=== PATIENT | male | born 1960 | race Caucasian/White ===

== ENCOUNTER 2016-08-12 17:09 | Inpatient (IN) | payer MEDICARE ==
--- NOTE | ~2016-08-12 | CN ---
Consultation Report [facility] [address] [place]. [address] NAME: DRAGAN LEE : 64 STATUS : ADM IN PAT#: [id number] AGE: 56 ADM/REG DATE : 08/12/16 MR#: [id number] REPORT SERV DATE: 08/14/16 DICTATED BY: DAVID NORRIS DATE: 08/13/16 REPORT STATUS : Draft TRANSCRIBED BY: MODCb DATE: 08/13/16 CARDIOLOGY CONSULT DATE OF CONSULTATION: 08/13/2016 REASON FOR REFERRAL: Heart failure exacerbation. HISTORY OF PRESENT ILLNESS: This is a pleasant, 56-year-old gentleman with complex past medical history there that I have seen recently for the first time at [facility]. He has been until now followed by Dr. Naye Ozuna in different group. He has advance congestive heart failure with likely ischemic cardiomyopathy and EF 30%, found by echo in 04/2017. He is status post a CABG 2002 at [facility] and followup PA. He since then had multiple PCIs to different vessels by Dr. Ozuna, most recent one in 04/2016. He also has a cirrhosis with frequent paracenteses, portal hypertension, sleep apnea, and chronic kidney disease. He is a heavy smoker with COPD. He has several hospitalizations at [facility] in April and also in May. I have last time seen him at the [facility] on 08/01/2016. At that time, we discussed a plan to upgrade his pacemaker to AICD but before it could happen, the patient was admitted to Hospitalist Service for failure to thrive, increased abdominal girth, increased lower extremity edema, and worsening dyspnea with minimal activity. There have been some signs of PND also over the last couple days. The patient denies any chest pain or palpitations. He was admitted over the weekend. Reported last night he fell from hospital bed on his face. CT of the brain was negative for bleeding per the nurse. Of note, the patient has also chronic thrombocytopenia. He was found to have a BNP up to 1000 with some pleural thickening on the chest x-ray. Chronic renal insufficiency with creatinine 2.1 and then mild troponin leak at 0.05 and 0.1, but no ST- segment changes. He is on an intravenous Bumex drip and has been already seen by quality assurance representative. He is currently comfortable sitting on the bed without any dyspnea. REVIEW OF SYSTEMS: The rest of review of systems is negative. PAST MEDICAL HISTORY: 1. Coronary artery disease. He has a history of PA in 2002 with CABG at [facility] in 2002 with subsequent multiple PCIs to different vessels, most recent one in 04/[address] Naye ozuna. 2. Ischemic cardiomyopathy with EF 30% by echo in 06/2016 with some moderate tricuspid valve regurgitation. 3. Chronic congestive heart failure with recurrent exacerbation. The prior one was in 05/2016 at [facility]. 4. Status post permanent pacemaker placement in the past, awaiting AICD upgrade. 5. Cirrhosis with frequent paracenteses. 6. Portal hypertension. 7. Obstructive sleep apnea. 8. Chronic thrombocytopenia. 9. Chronic kidney disease with left atrophic kidney, followed up by Dr. Pringle with Consultation Report [address] [address] NAME: DRAGAN LEE : 64 STATUS : ADM IN [facility]#: [id number] AGE: 56 ADM/REG DATE : 08/12/16 MR#: [id number] REPORT SERV DATE: 08/14/16 DICTATED BY: DAVID NORRIS DATE: 08/13/16 REPORT STATUS : Draft TRANSCRIBED BY: KITA DATE: 08/13/16 transient hemodialysis, last one in May. 10.COPD with smoking dependency. 11.Spondylosis, on chronic narcotics. ALLERGIES: NO KNOWN DRUG ALLERGIES. HOME MEDICATIONS: Advair Diskus, alprazolam 1 mg three times a day, atorvastatin 20 mg once a day, Coreg 25 mg twice a day, citalopram 20 mg once a day, Combivent as needed, digoxin 0.125 mg once a day, Effient 10 mg once a day, Lasix 80 mg once a day. He was just started on a Bumex drip intravenously in hospital. Gabapentin 300 mg twice a day, hydrocodone 10/325 mg four times a day, iron supplement, isosorbide dinitrate 30 mg twice a day, Synthroid 137 mcg once a day, oxycodone every three hours as needed for pain, pantoprazole 40 mg once a day, and tamsulosin 0.4 mg once a day. SOCIAL HISTORY: The patient is . He previously worked in the [employer]. He has been disabled since the bypass surgery. He walks without any support. He has been smoking last 30 years, currently one pack a day. He denies drinking alcohol or using street drugs. FAMILY HISTORY: Negative for sudden cardiac , premature coronary artery disease in the family. PHYSICAL EXAMINATION: GENERAL: Chronically ill-looking gentleman who looks older than his biological age. VITAL SIGNS: Blood pressure 142/85, heart rate 72 and regular. HEENT: Pupils reactive to light and accommodation. Moist mucosa membrane. NECK: No JVD. Normal carotid upstroke. No carotid bruits. LUNGS: Decreased breath sounds bibasilar, but no crackles. COR: Normal S1, S2. No S3 or S4. No significant rub or murmurs. ABDOMEN: Distended with possible ascites. Mildly tender in the right upper quadrant. EXTREMITIES: Lower extremity 1+ edema up to the half of the hopson with decreased pedal pulses bilaterally. There are some bruises and scratches on his face over his right eye, noted since last night's fall. SKIN: Warm with normal turgor. MS: No kyphosis. NEURO/PSY: Alert and oriented. Nonfocal. DATA: Platelet count 80,000, creatinine 2.1, BUN 39, troponin 0.05 to 0.1, TSH is elevated at 4.5, BNP 1000. Chest x-ray as above. Electrocardiogram, normal sinus rhythm. First- degree AV block, 71 beats per minute with nonspecific ST-segment changes. ASSESSMENT AND PLAN: 1. Fluid overload with heart failure exacerbation. 2. Chronic kidney disease. 3. Liver cirrhosis with ascites. Consultation Report [address] [address] NAME: DRAGAN LEE : 64 STATUS : ADM IN PAT#: [id number] AGE: 56 ADM/REG DATE : 08/12/16 MR#: [id number] REPORT SERV DATE: 08/14/16 DICTATED BY: DAVID NORRIS DATE: 08/13/16 REPORT STATUS : Draft TRANSCRIBED BY: KITA DATE: 08/13/16 4. Chronic obstructive pulmonary disease with possible exacerbation. 5. Coronary artery disease with remote history of CABG, now troponin leak, is likely demand ischemia. The patient denies any chest pain. There are no obvious signs of myocardial infarction. I will treat him medically. He will need to be on strict fluid restriction. I agree on intravenous Bumex drip. His pacemaker has been checked yesterday, it is functioning well. After the exacerbation, he may require upgrade to the AICD as planned previously. At the present time, there is no indication for coronary arteriogram. His platelet count will need to be followed very closely. He is not a candidate for intravenous heparin. He may be required to see Dr. Nadir Sen who has been following him for cirrhosis while in the hospital also. We will follow the patient with you. GRICELDA/RAMÍREZL David Norris M.D. / [id number] CC: Rojas Dave M.D.
--- NOTE | ~2016-08-12 | HP ---
History And Physical [place] [place]. [address] NAME: DRAGAN LEE : 64 STATUS : ADM IN [facility]#: [id number] AGE: 56 ADM/REG DATE : 08/12/16 MR#: [id number] REPORT SERV DATE: 08/12/16 DICTATED BY: CARRI JOSE DATE: 08/12/16 REPORT STATUS : Draft TRANSCRIBED BY: MODCb DATE: 08/12/16 DATE OF ADMISSION: 08/12/2016 CHIEF COMPLAINT: A 56-year-old male presenting with volume overload, severe orthopnea. HISTORY OF PRESENT ILLNESS: The patient's history was obtained through careful interview with patient and , coupled with review of [facility] medical records. The patient states he has had a very complicated recent medical course between April 2016 and June 2016, he had developed worsening kidney failure and volume overload thought to be secondary to heart failure and cirrhosis. He was hospitalized on and off at [facility] and was on about three month course of dialysis. In June 2016, he was able to come off dialysis and has been managed by cardiology Dr. Gann and laborer high density press Dr. Pringle as well as continued visits with his primary care physician, Dr. Live Beverly. But over the last 10 days, the patient unfortunately has noticed signs of volume overload. The most significant complaint has been orthopnea. He cannot lie down at all without feeling as if he is smothering, and he has either been sitting up on the side of his bed all night or trying to rest in a recliner but still with paroxysmal nocturnal dyspnea. He also describes extreme dyspnea on exertion to the point where even walking across to his home leaves him gasping for breath. He describes dizziness and lightheadedness with exertion and feels uncordinated because of this. He has noticed no abdominal swelling, but he has noticed lower extremity edema that is not painful though. He describes his abdomen as feeling "messed up" with cramping discomfort from time to time and occasional loose stools. He is unable to give a numerical severity of his discomfort. No chest pain. No headache. No back pain. No leg pain. No fevers or chills. No nausea or vomiting. About a week ago, he felt so fatigued that he wondered if this was an adverse reaction from his thyroid medication. Therefore, he decided to take himself off Synthroid for about the last seven days. REVIEW OF SYSTEMS: Otherwise, a 14-point review of systems was obtained and was negative. PAST MEDICAL HISTORY: 1. Systolic congestive heart failure. Ejection fraction 30% measured on 07/10/2016 with moderate tricuspid regurgitation. History And Physical [address] [place]. [address] NAME: DRAGAN LEE : 64 STATUS : ADM IN PAT#: [id number] AGE: 56 ADM/REG DATE : 08/12/16 MR#: [id number] REPORT SERV DATE: 08/12/16 DICTATED BY: CARRI JOSE DATE: 08/12/16 REPORT STATUS : Draft TRANSCRIBED BY: KITA DATE: 08/12/16 2. Chronic kidney disease, stage III to stage IV. The patient had been on dialysis between April 2016 and June 2016, but has been off dialysis. We have records of a baseline creatinine of about 1.65 earlier in 2016. 3. COPD. 4. Coronary artery disease, status post CABG in 2003 and then the patient believes he has had five or six stents since that time. 5. Pacemaker and being evaluated for an AICD. 6. Depression and anxiety. 7. Chronic thrombocytopenia. 8. Cirrhosis with ascites thought to be caused by ZEPEDA. The patient followed by Dr. Nadir Sen. 9. MRSA infection. 10.Benign prostatic hypertrophy. 11.Possible adrenal insufficiency ?. The patient has a prescription for Cortef. PAST SURGICAL HISTORY: 1. CABG in 2003. 2. Pacemaker. ALLERGIES: NO KNOWN DRUG ALLERGIES. SOCIAL HISTORY: The patient continues to smoke cigarettes, does not drink alcohol. He is . Lives in [place]. He has children, grandchildren, and even great grandchildren now. He previously did work in sales. He has been on disability since his CABG in 2003. FAMILY HISTORY: Diabetes and heart disease are prevalent. CURRENT MEDICATIONS: Include albuterol inhaler, Xanax 1 mg p.o. t.i.d. as needed, Lipitor 20 mg p.o. daily, Coreg 25 mg p.o. b.i.d., Keflex just started on August 11, Celexa 20 mg p.o. daily, Cymbalta 60 mg p.o. daily, iron supplement, Advair inhaled twice a day, Lasix 80 mg p.o. b.i.d., Neurontin 300 mg p.o. b.i.d., hydrocodone, Cortef 5 mg at noon 10 mg in the morning, levothyroxine 137 mcg p.o. daily but has been noncompliant for about a week, magnesium 400 mg p.o. daily, Nasonex, nitroglycerin, Roxicodone 15 mg 6 times a day as needed, Protonix 40 mg p.o. b.i.d., Effient 10 mg p.o. daily, and Flomax 0.4 mg p.o. daily. PHYSICAL EXAMINATION: VITAL SIGNS: Temperature 97.9, pulse 72, blood pressure 161/80, respiratory rate 20, O2 saturation 95% on room air. GENERAL: A pleasant, cooperative male. He appears chronically ill but while sitting up in the bed he does not appear in any acute distress. HEENT: Pupils are equal, round, and reactive to light. No conjunctival pallor. No scleral icterus. Nares are patent. Oropharynx is clear of obstruction. Moist mucous membranes. NECK: Trachea midline, no thyromegaly. LYMPH: No cervical lymphadenopathy. No supraclavicular lymphadenopathy. RESPIRATORY: The patient has wet rales on examination. He also has a "distant" breath sounds and a "tightness" to his lung exam that suggests underlying chronic COPD changes. He History And Physical [address] [address] NAME: DRAGAN LEE : 64 STATUS : ADM IN [facility]#: [id number] AGE: 56 ADM/REG DATE : 08/12/16 MR#: [id number] REPORT SERV DATE: 08/12/16 DICTATED BY: CARRI JOSE DATE: 08/12/16 REPORT STATUS : Draft TRANSCRIBED BY: MODL DATE: 08/12/16 has dullness to percussion bilaterally at the base of lungs to suggest pleural effusions. It appears that the left side is more pronounced than the right by percussion. No focal egophony. The patient has only a minimally labored respiratory effort while at rest in the bed. CARDIOVASCULAR: Regular rate and rhythm. I do not appreciate a murmur, rub, or gallop. He has jugular venous distention to about the mid neck area, and he has deeply pitting lower extremity edema that extends about to his knee symmetrically. ABDOMEN: Soft, nontender by my exam, nondistended. Normal bowel sounds are auscultated throughout. No hepatosplenomegaly. DERMATOLOGIC: Warm and dry extremities. No pallor, no cyanosis. PSYCHIATRIC: Notably flat affect. He is in the discouraged mood but he denies depression. He is alert and oriented x3. LABORATORY DATA: White blood count 7.4, hemoglobin 15, hematocrit 44, platelets 80, sodium 139, potassium 4.7, chloride 101, bicarb 30, BUN 39, creatinine 2.12, glucose 97. TSH elevated at 4.410. Troponin 0.05. Brain natriuretic peptide 1092, INR 1.2. Influenza negative. STUDIES: 1. Chest x-ray, by my own evaluation shows pulmonary edema, cardiomegaly, left pleural effusion. 2. EKG by my own evaluation shows sinus rhythm, first-degree AV block, large inferior Q- waves, slight T-wave inversions in leads V5 through V6. ASSESSMENT AND PLAN: 1. Systolic congestive heart failure exacerbation with ejection fraction 30%, 07/10/2016. I reviewed his echo. The patient also has moderate tricuspid regurgitation. Placed on IV Bumex drip. Continue Coreg, hold JULIAN inhibitor and ARB for now secondary to chronic kidney disease. 2. Chronic kidney disease, stage III to stage IV. We will consult patient's laborer high density press Dr. Pringle. He had a history of temporary dialysis between April 2016 and June 2016. 3. Cirrhosis thought to be secondary to nonalcoholic steatohepatitis, seen outpatient by Dr. Nadir Sen, night stocker. 4. Under treated hypothyroidism. The patient discontinued medicine, and I will resume. 5. Chronic obstructive pulmonary disease. Placed on Duo-nebulizers. Counseled tobacco abstinence. 6. Coronary artery disease, status post CABG 2003 and about six stents since then. No current chest pain. Continue Effient. 7. Chronic thrombocytopenia. 8. Pacemaker. We will interrogate. Consult Dr. Gann, hairspring setter as it appears the patient may have indications for an AICD placement. 9. Possible adrenal insufficiency ? but I would like to hold Cortef for now as patient is quite volume overloaded and hypertensive. History And Physical [place] [address] [place]. [address] NAME: DRAGAN LEE : 64 STATUS : ADM IN PAT#: [id number] AGE: 56 ADM/REG DATE : 08/12/16 MR#: [id number] REPORT SERV DATE: 08/12/16 DICTATED BY: CARRI JOSE DATE: 08/12/16 REPORT STATUS : Draft TRANSCRIBED BY: KITA DATE: 08/12/16 KPL/KITA Carri Jose M.D. / [id number] CC: Rojas Dave M.D. Ondrej J Lisy, M.D. Donald Franklin Jr, M.D.
--- NOTE | ~2016-08-12 | DS ---
Discharge Summary [id number] [place]. [address] NAME: MONTANA LEE : 64 STATUS : DIS IN PAT#: [id number] AGE: 56 ADM/REG DATE : 08/12/16 MR#: [id number] REPORT SERV DATE: 08/17/16 DICTATED BY: DATE: REPORT STATUS : Draft TRANSCRIBED BY: MODL DATE: 08/16/16 ADMISSION DATE: 08/12/2016 DISCHARGE DATE: 08/16/2016 DISCHARGE DIAGNOSES: 1. Ischemic cardiomyopathy with an ejection fraction of 30%. 2. Chronic kidney disease stage 3. 3. Systolic heart failure with volume overload due to. 4. ischemic cardiomyopathy with an ejection fraction of 30%. 5. Anxiety and depression. 6. Tobacco abuse. 7. Chronic obstructive pulmonary disease. 8. Chronic liver disease with cirrhosis. CONSULTING PHYSICIAN: Include Dr. Foster Gann, with [facility]. DISCHARGE MEDICATIONS: Include Lipitor 20 mg p.o. daily, Bumex 2 mg p.o. b.i.d., Coreg 25 mg p.o. b.i.d., Celexa 20 mg p.o. daily, Cymbalta 60 mg p.o. daily, Neurontin 300 mg p.o. b.i.d., Cortef 5 mg p.o. at noon, Cortef 10 mg p.o. daily, levothyroxine 137 mcg p.o. daily, magnesium 400 mg p.o. daily, Protonix 40 mg p.o. b.i.d., Effient 10 mg p.o. daily, Flomax 0.4 mg p.o. daily, Advair Diskus 500/50 one puff inhalation b.i.d., potassium chloride 20 mEq p.o. b.i.d., Combivent one inhalation p.o. b.i.d., ferrous sulfate 325 mg p.o. b.i.d., Roxicodone 10 mg p.o. q.4 hours p.r.n. for pain, Xanax 1 mg p.o. t.i.d. p.r.n. for anxiety, DuoNeb one nebulizer inhalation 4 times daily p.r.n. for shortness of breath, ProAir HFA 2 puffs inhalation p.r.n. for shortness of breath, Nitrostat 0.4 mg sublingual p.r.n. for chest pain. For full H and P, please refer to Dr. Jordon Richards's dictation on 08/12/2016. Please also see consultation dictation of Fran Sen M.D. as well as Dr. Foster Gann. IMAGING: Imaging includes multiple portable chest x-rays, last showing left lung base atelectasis and effusion which were improving compared to the previous study. This was performed on 08/13/2016 and compared to 08/12/2016. CT of brain without contrast was performed, and no acute intracranial pathology was noted. Evidence for old injury to the right frontal region, maxillary sinusitis, and mild atrophy were noted. There was a small right cephalohematoma identified. Renal ultrasound was performed which demonstrated similar appearance of the kidneys with renal cortical thinning and a benign left renal cyst, obscuration of the aorta by gas was noted. HOSPITAL COURSE/PROBLEM LIST: 1. Ischemic cardiomyopathy with an ejection fraction of 30%. Systolic heart failure with volume overload. The patient was admitted with paroxysmal nocturnal dyspnea that was going on for some time and worsening at home. The patient was placed on a Bumex drip after admission which I discontinued yesterday on 08/15/2016, placed the patient on Bumex p.o. He has diuresed well during his hospital stay. He no longer has paroxysmal nocturnal dyspnea. However, he is still requiring oxygen. This is likely due to Discharge Summary [address] [address] NAME: MONTANA LEE : 64 STATUS : DIS IN PAT#: [id number] AGE: 56 ADM/REG DATE : 08/12/16 MR#: [id number] REPORT SERV DATE: 08/17/16 DICTATED BY: DATE: REPORT STATUS : Draft TRANSCRIBED BY: MODL DATE: 08/16/16 progressive pulmonary disease. The patient does have COPD, and we will evaluate him for home oxygen therapy prior to discharge. He is in no acute distress at this time. His O2 saturation is 96% on 2 L and rest. I will continue the patient on Bumex p.o. after discharge 2 mg b.i.d. He was on Lasix 80 mg b.i.d. at home. However, the Bumex seemed to work well for diuresis here in the hospital and considering he came in overt failure, I think it is prudent to switch him to Bumex. [facility], Dr. Gann was following this patient during his hospital stay. He did sign off yesterday, and the patient will follow up with him in five weeks post discharge. The patient does have a permanent pacemaker. He was evaluated for possible upgrade to an AICD during his hospital stay. However, it was decided between Dr. Gann and Dr. Thompson that the patient could have this done as an outpatient and did not need to stay in the hospital for this procedure. 2. Chronic kidney disease. The patient's creatinine is stable and today is 1.92. He will need followup with his primary care provider for close monitoring of this as well as his information technology account manager Dr. Pringle. 3. Anxiety and depression. I will continue the patient's Xanax that he was taking at home as well as his Cymbalta and Celexa. 4. Tobacco abuse. Smoking cessation was discussed with the patient, the importance of quitting especially, if the patient needs home oxygen therapy. It was also discussed that this would reduce the progression of his disease of COPD. 5. Cirrhosis of the liver. The patient sees Dr. Nadir Sen for his cirrhosis which is stable at this time. He can follow up with him as needed. The patient is currently hemodynamically stable. Last blood pressure 146/79, heart rate 69, O2 saturation 96% on 2 L nasal cannula. Temperature was 98.1. CLR/MODL Montana Rose NP / [id number] CC: MD Angie Rich M.D.
--- NOTE | ~2016-08-12 | CN ---
Consultation Report [facility] [address] [place]. [address] NAME: DRAGAN LEE : 64 STATUS : ADM IN PAT#: [id number] AGE: 56 ADM/REG DATE : 08/12/16 MR#: [id number] REPORT SERV DATE: 08/13/16 DICTATED BY: AAMIR SEN DATE: 08/12/16 REPORT STATUS : Draft TRANSCRIBED BY: MODL DATE: 08/12/16 RENAL CONSULT DATE OF CONSULTATION: 08/12/2016 REASON FOR CONSULTATION: Regarding acute kidney injury. BRIEF HISTORY OF PRESENT ILLNESS: A 56-year-old white male with a history of chronic kidney disease followed by Dr. Pringle with hemodialysis dependent acute kidney injury on 04/20/2016 after a dialysis, 06/02/2016. Unknown baseline creatinine. Currently, the patient suggests that GFR is 20 mL/minute. Pre-hemodialysis baseline creatinine was 1.5 with questionable adrenal insufficiencies; coronary artery disease, status post PCI multiple times, EF of 30% with pacemaker placement; history of CABG in 2003; cirrhosis, followed by Dr. Nadir Sen with COPD with ongoing tobacco use, admitted with acute on chronic systolic CHF with weight gain of approximately 5 pounds. BUN and creatinine noted be 39 and 2.1 which is suspected to be below baseline in the setting of volume overload. We are called for further evaluation and management of renal dysfunction. The patient denies any NSAID use. No other additional nephrotoxic injury. PAST MEDICAL HISTORY: 1. Chronic kidney disease. The patient of Dr. Pringle, unknown baseline creatinine. Pre- hemodialysis was 1.5. 2. Ischemic cardiomyopathy with a CABG in 2003, multiple PCI, EF of 30%. 3. Pacemaker placement. 4. Fatty liver disease resulting in cirrhosis, followed by Dr. Nadir Sen. 5. Ongoing tobacco use with COPD. 6. Chronic thrombocytopenia. 7. Hypothyroidism, untreated. MEDICATIONS ON ADMISSION: Include DuoNebs, ProAir, Xanax, Lipitor, Coreg 25 mg b.i.d., Keflex, Celexa, Cymbalta, iron sulfate, Advair, Lasix 80 mg b.i.d., Neurontin, Lyons, Cortef 50 mg daily, Combivent, levothyroxine. The patient was not taking magnesium oxide, Nasonex, Nitrostat, Roxicodone, Protonix, Effient, and Flomax. ALLERGIES: INCLUDE NO KNOWN DRUG ALLERGIES. SOCIAL HISTORY: Positive tobacco use one pack per day for 45 years. No alcohol or illicit drug use. FAMILY HISTORY: No history of renal disease. REVIEW OF SYSTEMS: Consultation Report [facility] [address] [place]. [address] NAME: DRAGAN LEE : 64 STATUS : ADM IN [facility]#: [id number] AGE: 56 ADM/REG DATE : 08/12/16 MR#: [id number] REPORT SERV DATE: 08/13/16 DICTATED BY: AAMIR SEN DATE: 08/12/16 REPORT STATUS : Draft TRANSCRIBED BY: KITA DATE: 08/12/16 Negative, except as mentioned in the HPI. PHYSICAL EXAMINATION: VITAL SIGNS: Temperature 97.9, blood pressure of 161/80, pulse of 72, respiratory rate is 20. GENERAL: Well-developed, acute on chronically ill-appearing white male, in no distress. HEENT: Normocephalic and atraumatic. Pupils are equal, round, and reactive to light. Mucous membranes are moist. NECK: Supple. No thyromegaly. CARDIOVASCULAR: Regular rate and rhythm. No murmurs appreciated. Normal S1, S2. RESPIRATORY: Clear to auscultation anteriorly with decreased breath sounds at bases. ABDOMEN: Normal respiratory effort. Abdomen is soft, obese, nontender, and nondistended. Positive bowel sounds. EXTREMITIES: No clubbing, cyanosis, with significant 2+ pitting edema of the lower extremities bilaterally. SKIN: No rashes or ulcerations appreciated. NEURO: Moves all extremities well. No focal deficits. Normal sensation in all extremities. PSYCH: Alert and oriented x3 with a flat affect. LABORATORY DATA: Sodium 139, potassium 4.7, chloride 101, bicarb 28, BUN 39, creatinine 2.1, glucose is 97, calcium 8.9, magnesium is 2.5. White count is 7.4, hemoglobin is 14.6, platelet count is 88,000. BNP is 1092. TSH is 4.4. Troponin 0.05. Chest x-ray, left effusion with prominent pulmonary vasculature. ASSESSMENT AND PLAN: 1. Chronic kidney disease. Creatinine is suspected to be below baseline. We will obtain office records. 2. Acute on chronic systolic congestive heart failure. Cardiology consulted. Questionable AICD. I agree with Bumex drip for 8 hours and then the patient to be placed on oral Bumex. The patient may need IV Bumex for a long period of time. We will re-evaluate in the a.m. No acute need for renal replacement therapy. I agree holding hydrocortisone, this may be disruptive due to his volume status. 3. Volume overload. 4. Coronary artery disease with coronary artery bypass graft in 2003, multiple percutaneous coronary intervention and pacemaker placement. 5. Cirrhosis and fatty liver. With a history of morbid obesity. 6. Hyperlipidemia. 7. Chronic obstructive pulmonary disease with obstructive sleep apnea and CPAP not working. The patient needs CPAP fixed. Continue supportive care. Avoid nephrotoxins. Partners to follow in the a.m. NCP/MODL Consultation Report [address] [address] NAME: DRAGAN LEE : 64 STATUS : ADM IN PAT#: [id number] AGE: 56 ADM/REG DATE : 08/12/16 MR#: [id number] REPORT SERV DATE: 08/13/16 DICTATED BY: AAMIR SEN. DATE: 08/12/16 REPORT STATUS : Draft TRANSCRIBED BY: KITA DATE: 08/12/16 Aamir Sen M.D. / [id number] CC: Rojas Dave Jr, M.D.
--- NOTE | ~2016-08-12 | DS ---
Discharge Summary [facility] [address] [facility] [address] NAME: [place] LEE : 64 STATUS : DIS IN PAT#: [id number] AGE: 56 ADM/REG DATE : 08/12/16 MR#: [id number] REPORT SERV DATE: 08/17/16 DICTATED BY: DATE: REPORT STATUS : Draft TRANSCRIBED BY: MODL DATE: 08/16/16 ADMISSION DATE: 08/12/2016 DISCHARGE DATE: 08/16/2016 ADDENDUM: The discharge took me greater than 30 minutes due to medication reconciliation, discussion of followups with the patient, writing prescriptions, and ensuring home health was set up through discussion with Case Management. IRVING/KITA Montana Rose NP / [id number] CC: MD BENITEZ Rich
[~2016-08-12 17:09] MED LIST: ADVAIR INH; ASAB PO; ATROVENTUD INH; CELEXA20 PO; COMBIVENT RESPIM4 GM INH; COREG6 PO; EFFIENT10 PO; HYDROCORT5 MG PO; L80 PO; LEVOTHYROXIN137 MCG PO; LIPITOR20 PO; NEUR300 PO; NORCO1 TAB PO; PROTONIX PO; ROXICODONE15 MG PO; XANAX1 MG PO
[2016-08-12 17:43] LABS: BASOPHILS 0.3 %; BASOPHILS ABSOLUTE 0.02 10/3/uL (0.0-0.16); EOSINOPHILS 0 %; ER CBC TAT 0 Hrs 07 Mins; HEMOGLOBIN 14.6 g/dL (13.6-17.8); IMMATURE GRANULOCYTES 0.1 %; IMMATURE GRANULOCYTES ABSOLUTE 0.01 10/3/uL (0.0-0.11); LYMPHOCYTES 14.7 %; LYMPHOCYTES ABSOLUTE 1.09 10/3/uL (0.67-4.30); MEAN CORPUS HGB CONC 33.2 g/dL (32.0-36.0); MEAN CORPUSCULAR HEMOGLOB 32.2 pg (26.0-34.0); MEAN CORPUSCULAR VOLUME 97.1 fL (80-100); MEAN PLATELET VOLUME 11.8 fL (9.2-13.0); MONOCYTES 11.5 %; MONOCYTES ABSOLUTE 0.85 10/3/uL (0.21-1.20); NEUTROPHILS 73.4 %; NEUTROPHILS ABSOLUTE 5.44 10/3/uL (2.02-8.40); RBC DISTRIBUTION WIDTH 14.9 % (12.0-16.0); RED CELL COUNT 4.53 10/6/uL (4.7-6.1); WHITE BLOOD CELLS 7.4 10/3/uL (4.5-10.5)
[2016-08-12 17:44] LABS: ALLENS TEST Pos; BE (BASE EXCESS) 3.1 MEQ/L (0 +/- 2.5); CARBOXYHEMOGLOBIN 3.1 % (0-3); DEVICE NC; HCO3 (ACTUAL BICARBONATE) 28.2 MEQ/L (23-27); HEMOBLOGIN CONTENT 14.5 G/DL (14-18); INSTRUMENT SERIAL # 8087; METHEMOGLOBIN 0.1 % (0-3); OPERATOR ID 31928; PCO2 (CO2 TENSION) 45 MMHG (35-45); PO2 (O2 TENSION) 80 MMHG (79-93); SAMPLE Arterial; pH 7.42 (7.37-7.43)
[2016-08-12 17:44] LABS: MANUAL DIFF NO %; PLATELET COUNT 80 10/3/uL (150-400)
[2016-08-12 17:51] LABS: INTERNATIONAL NORMAL RATI 1.2 UNITS (-); PARTIAL THROMBO TIME 33.4 SEC (22.5-37.2); PROTIME (NOT ORD) 14.6 SEC (12.0-14.5)
[2016-08-12 18:02] LABS: INFLUENZA A SCREEN NEGATIVE (NEGATIVE); INFLUENZA B SCREEN NEGATIVE (NEGATIVE)
[2016-08-12 18:05] LABS: BUN (BLOOD UREA NITROGEN) 39 MG/DL (6-23); CALCIUM, SERUM 8.9 MG/DL (8.5-10.4); CHLORIDE, SERUM 101 MMOL/L (96-112); CO2 (CARBON DIOXIDE) 30 MMOL/L (24-34); CREATININE 2.12 MG/DL (0.70-1.30); GFR AFRICAN AMERICAN 40 ML/MIN (>=60); GFR NON AFRICAN AMERICAN 34 ML/MIN (>=60); GLUCOSE, SERUM 97 MG/DL (60-99); POTASSIUM, SERUM 4.7 MMOL/L (3.5-5.3); SALICYLATE 4.3 MG/DL (-); SODIUM, SERUM 139 MMOL/L (135-148)
[2016-08-12 18:06] LABS: ACETAMINOPHEN LEVEL (TYLENOL) < 2.0 MCG/ML (10.0-20.0); ALCOHOL < 10 MG/DL (0); CHEST PAIN PROFILE TAT 0 Hrs 30 Mins; TROPONIN I 0.05 NG/ML (<0.05)
[2016-08-12] MEDS ORDERED: CORTEF5 PO ×2 (18:43)
[2016-08-12] MEDS ORDERED: CYMBALTA60 PO (18:43)
[2016-08-12] MEDS ORDERED: LIPITOR20 PO (18:44)
[2016-08-12] MEDS ORDERED: FERROUS SULF325 M1 PO (18:44)
[2016-08-12] MEDS ORDERED: COREG6 PO (18:44)
[2016-08-12] MEDS ORDERED: ROXICODONE15 MG PO (18:45)
[2016-08-12] MEDS ORDERED: NORCO1 TAB PO (18:45)
[2016-08-12] MEDS ORDERED: XANAX1 MG PO (18:45)
[2016-08-12] MEDS ORDERED: LEVOTHYROXIN137 MCG PO (18:46)
[2016-08-12] MEDS ORDERED: PROTONIX PO (18:46)
[2016-08-12] MEDS ORDERED: FLOMAX4 PO (18:46)
[2016-08-12] MEDS ORDERED: K500 PO (18:46)
[2016-08-12] MEDS ORDERED: DUONEB INH (18:47)
[2016-08-12] MEDS ORDERED: NEUR300 PO (18:47)
[2016-08-12] MEDS ORDERED: MAGOX4 PO (18:49)
[2016-08-12] MEDS ORDERED: L80 PO (18:49)
[2016-08-12] MEDS ORDERED: NASONEX NAS (18:50)
[2016-08-12] MEDS ORDERED: EFFIENT10 PO (18:50)
[2016-08-12] MEDS ORDERED: ADVAIR INH (18:50)
[2016-08-12] MEDS ORDERED: COMBIVENT RESPIM4 GM PO (18:50)
[2016-08-12] MEDS ORDERED: PROAIR HFA INH (18:51)
[2016-08-12] MEDS ORDERED: NITROSTAT0.4 MG SL (18:51)
[2016-08-12] MEDS ORDERED: CELEXA20 PO (18:57)
[2016-08-12 19:57] LABS: AMPHETAMINES (NOT ORD) NEG (NEG); BARBITURATES (NOT ORDERED NEG (NEG); BENZODIAZEPINES (NOT ORD) NEG (NEG); CANNABINOIDS (THC) NEG (NEG); COCAINE (NOT ORDERED) NEG (NEG); OPIATES NEG (NEG); PHENCYCLIDINE(PCP) NEG (NEG); TRICYCLICS NEG (NEG)
[2016-08-13 05:18] LABS: BASOPHILS 0.4 %; BASOPHILS ABSOLUTE 0.03 10/3/uL (0.0-0.16); EOSINOPHILS 8.1 %; EOSINOPHILS ABSOLUTE 0.55 10/3/uL (0.0-0.53); HEMATOCRIT 42.4 % (40.0-51.0); HEMOGLOBIN 14.1 g/dL (13.6-17.8); LYMPHOCYTES 22.8 %; LYMPHOCYTES ABSOLUTE 1.56 10/3/uL (0.67-4.30); MEAN CORPUS HGB CONC 33.3 g/dL (32.0-36.0); MEAN CORPUSCULAR HEMOGLOB 32.3 pg (26.0-34.0); MEAN PLATELET VOLUME 11.5 fL (9.2-13.0); MONOCYTES 10.2 %; NEUTROPHILS 58.5 %; NEUTROPHILS ABSOLUTE 3.99 10/3/uL (2.02-8.40); PLATELET COUNT 82 10/3/uL (150-400); RED CELL COUNT 4.37 10/6/uL (4.7-6.1); WHITE BLOOD CELLS 6.8 10/3/uL (4.5-10.5)
[2016-08-13 05:26] LABS: INTERNATIONAL NORMAL RATI 1.2 UNITS (-); PARTIAL THROMBO TIME 35.3 SEC (22.5-37.2); PROTIME (NOT ORD) 14.8 SEC (12.0-14.5)
[2016-08-13 05:46] LABS: A/G RATIO 0.9 (0.7-1.9); ALBUMIN 3.2 G/DL (3.5-5.0); BUN (BLOOD UREA NITROGEN) 36 MG/DL (6-23); CALCIUM, SERUM 9.1 MG/DL (8.5-10.4); CHLORIDE, SERUM 101 MMOL/L (96-112); CO2 (CARBON DIOXIDE) 30 MMOL/L (24-34); CPK 27 U/L (0-200); CREATININE 1.95 MG/DL (0.70-1.30); GFR AFRICAN AMERICAN 44 ML/MIN (>=60); GFR NON AFRICAN AMERICAN 38 ML/MIN (>=60); GLOBULIN 3.7 G/DL (2.5-4.1); GLUCOSE, SERUM 97 MG/DL (60-99); PHOSPHORUS, SERUM 3.6 MG/DL (2.5-4.5); SGOT(AST) 36 U/L (5-40); SGPT(ALT) 50 U/L (5-65); SODIUM, SERUM 139 MMOL/L (135-148); TOTAL BILIRUBIN 0.7 MG/DL (0-1.2); TOTAL PROTEIN 6.9 G/DL (6.0-8.5)
[2016-08-13 05:47] LABS: ALKALINE PHOSPHATASE 278 U/L (45-117); CK-MB 1.2 NG/ML; MANUAL DIFF NO %
[2016-08-13 13:53] LABS: ALLENS TEST Pos; BE (BASE EXCESS) 2.8 MEQ/L (0 +/- 2.5); CARBOXYHEMOGLOBIN 0.8 % (0-3); DEVICE NC; HCO3 (ACTUAL BICARBONATE) 28.5 MEQ/L (23-27); HEMOBLOGIN CONTENT 14.5 G/DL (14-18); INSTRUMENT SERIAL # 35151; METHEMOGLOBIN 0.5 % (0-3); O2 CONTENT 18.8 VOL% (18-24); PCO2 (CO2 TENSION) 48 MMHG (35-45); PO2 (O2 TENSION) 70 MMHG (79-93); SAMPLE Arterial; pH 7.39 (7.37-7.43)
[2016-08-14 04:47] LABS: BASOPHILS 0.4 %; BASOPHILS ABSOLUTE 0.03 10/3/uL (0.0-0.16); EOSINOPHILS 5.7 %; EOSINOPHILS ABSOLUTE 0.39 10/3/uL (0.0-0.53); HEMATOCRIT 40.4 % (40.0-51.0); HEMOGLOBIN 13.4 g/dL (13.6-17.8); IMMATURE GRANULOCYTES 0.1 %; IMMATURE GRANULOCYTES ABSOLUTE 0.01 10/3/uL (0.0-0.11); LYMPHOCYTES 21.6 %; LYMPHOCYTES ABSOLUTE 1.48 10/3/uL (0.67-4.30); MEAN CORPUS HGB CONC 33.2 g/dL (32.0-36.0); MEAN CORPUSCULAR HEMOGLOB 32.1 pg (26.0-34.0); MEAN CORPUSCULAR VOLUME 96.7 fL (80-100); MEAN PLATELET VOLUME 11.1 fL (9.2-13.0); MONOCYTES 9.9 %; MONOCYTES ABSOLUTE 0.68 10/3/uL (0.21-1.20); NEUTROPHILS 62.3 %; NEUTROPHILS ABSOLUTE 4.25 10/3/uL (2.02-8.40); PLATELET COUNT 75 10/3/uL (150-400); RBC DISTRIBUTION WIDTH 14.7 % (12.0-16.0); RED CELL COUNT 4.18 10/6/uL (4.7-6.1); WHITE BLOOD CELLS 6.8 10/3/uL (4.5-10.5)
[2016-08-14 04:48] LABS: MANUAL DIFF NO %
[2016-08-14 05:03] LABS: % IRON SAT 16 % (20-50); CALCIUM, SERUM 8.3 MG/DL (8.5-10.4); CHLORIDE, SERUM 97 MMOL/L (96-112); CO2 (CARBON DIOXIDE) 32 MMOL/L (24-34); CREATININE 2.04 MG/DL (0.70-1.30); FERRITIN 65 NG/ML (26-388); GFR AFRICAN AMERICAN 42 ML/MIN (>=60); GFR NON AFRICAN AMERICAN 36 ML/MIN (>=60); GLUCOSE, SERUM 102 MG/DL (60-99); IRON BINDING CAPACITY 242 MCG/DL (250-450); IRON, SERUM 39 MCG/DL (35-150); SGOT(AST) 22 U/L (5-40); SGPT(ALT) 35 U/L (5-65); SODIUM, SERUM 138 MMOL/L (135-148); TOTAL BILIRUBIN 0.8 MG/DL (0-1.2); TOTAL PROTEIN 5.7 G/DL (6.0-8.5)
[2016-08-14 05:06] LABS: A/G RATIO 1.1 (0.7-1.9); ALKALINE PHOSPHATASE 237 U/L (45-117); BUN (BLOOD UREA NITROGEN) 41 MG/DL (6-23); GLOBULIN 2.7 G/DL (2.5-4.1)
[2016-08-14 05:15] LABS: PLATELET ESTIMATE DEC (ADEQUATE); RBC MORPHOLOGY NORM (NORMAL)
[2016-08-15 06:38] LABS: BASOPHILS 0.5 %; BASOPHILS ABSOLUTE 0.04 10/3/uL (0.0-0.16); EOSINOPHILS 3.2 %; EOSINOPHILS ABSOLUTE 0.27 10/3/uL (0.0-0.53); HEMATOCRIT 39.9 % (40.0-51.0); HEMOGLOBIN 13.1 g/dL (13.6-17.8); IMMATURE GRANULOCYTES 0.2 %; IMMATURE GRANULOCYTES ABSOLUTE 0.02 10/3/uL (0.0-0.11); LYMPHOCYTES 17.4 %; LYMPHOCYTES ABSOLUTE 1.45 10/3/uL (0.67-4.30); MEAN CORPUS HGB CONC 32.8 g/dL (32.0-36.0); MEAN CORPUSCULAR HEMOGLOB 31.9 pg (26.0-34.0); MEAN CORPUSCULAR VOLUME 97.1 fL (80-100); MONOCYTES 11.4 %; MONOCYTES ABSOLUTE 0.95 10/3/uL (0.21-1.20); NEUTROPHILS 67.3 %; NEUTROPHILS ABSOLUTE 5.62 10/3/uL (2.02-8.40); PLATELET COUNT 82 10/3/uL (150-400); RBC DISTRIBUTION WIDTH 14.7 % (12.0-16.0); RED CELL COUNT 4.11 10/6/uL (4.7-6.1); WHITE BLOOD CELLS 8.4 10/3/uL (4.5-10.5)
[2016-08-15 06:40] LABS: MANUAL DIFF NO %
[2016-08-15 06:51] LABS: A/G RATIO 0.9 (0.7-1.9); ALBUMIN 3.1 G/DL (3.5-5.0); ALKALINE PHOSPHATASE 243 U/L (45-117); BUN (BLOOD UREA NITROGEN) 39 MG/DL (6-23); CALCIUM, SERUM 8.7 MG/DL (8.5-10.4); CHLORIDE, SERUM 97 MMOL/L (96-112); CO2 (CARBON DIOXIDE) 33 MMOL/L (24-34); CREATININE 1.99 MG/DL (0.70-1.30); GFR AFRICAN AMERICAN 43 ML/MIN (>=60); GFR NON AFRICAN AMERICAN 37 ML/MIN (>=60); GLOBULIN 3.6 G/DL (2.5-4.1); GLUCOSE, SERUM 96 MG/DL (60-99); PHOSPHORUS, SERUM 3.1 MG/DL (2.5-4.5); POTASSIUM, SERUM 4.3 MMOL/L (3.5-5.3); SGOT(AST) 28 U/L (5-40); SGPT(ALT) 34 U/L (5-65); SODIUM, SERUM 138 MMOL/L (135-148); TOTAL BILIRUBIN 0.5 MG/DL (0-1.2); TOTAL PROTEIN 6.7 G/DL (6.0-8.5)
[2016-08-16 06:00] LABS: CALCIUM, SERUM 8.8 MG/DL (8.5-10.4); CHLORIDE, SERUM 95 MMOL/L (96-112); CO2 (CARBON DIOXIDE) 33 MMOL/L (24-34); CREATININE 1.92 MG/DL (0.70-1.30); GFR AFRICAN AMERICAN 45 ML/MIN (>=60); GFR NON AFRICAN AMERICAN 39 ML/MIN (>=60); GLUCOSE, SERUM 99 MG/DL (60-99); PHOSPHORUS, SERUM 3.3 MG/DL (2.5-4.5); POTASSIUM, SERUM 4.3 MMOL/L (3.5-5.3); SODIUM, SERUM 134 MMOL/L (135-148)
[2016-08-16 06:03] LABS: BUN (BLOOD UREA NITROGEN) 43 MG/DL (6-23)
[2016-08-16] MEDS ORDERED: BUM2 PO (11:08)
[2016-08-16] MEDS ORDERED: KLOR-CON20 MEQ PO (11:20)
[2016-08-23] MEDS ORDERED: ATROVENTUD INH (09:31)
[2016-08-23] MEDS ORDERED: ASAB PO (10:12)
[2016-08-23] MEDS ORDERED: L80 PO (10:13)
[2016-08-23] MEDS ORDERED: COMBIVENT RESPIM4 GM INH (10:13)
[2016-08-23] MEDS ORDERED: NORCO1 TAB PO (10:13)
[2016-08-23] MEDS ORDERED: IMDUR30 PO (10:14)
[2016-08-24] MEDS ORDERED: COREG25 PO (09:46)
[2016-08-24] MEDS ORDERED: BUM2 PO (09:48)
[2016-08-24] MEDS ORDERED: CORTEF5 PO (09:49)
[2016-08-24] MEDS ORDERED: CORTEF20 MG PO (09:50)
[2016-08-24] MEDS ORDERED: NASONEX NAS (09:51)
[2016-08-24] MEDS ORDERED: MAGOX4 PO (09:52)
== END 2016-08-16 17:04 | disposition home or self-care (01) | DRG 291 ==
LOC: ER 17:09 → 7NO 19:00
PROVIDERS: Emergency Medicine; Hospitalist; Internal Medicine; Nurse Practitioner Acute Care
PROC: 4B02XSZ Measurement of Cardiac Pacemaker, External Approach (ICD-10-PCS; principal; 2016-08-13)
DX: I13.0 Hypertensive heart and chronic kidney disease with heart failure and stage 1 through stage 4 chronic kidney disease, or unspecified chronic kidney disease (principal); I50.23 Acute on chronic systolic (congestive) heart failure; K76.6 Portal hypertension; R18.8 Other ascites; I24.8 Other forms of acute ischemic heart disease; N18.3 Chronic kidney disease, stage 3 (moderate); D69.6 Thrombocytopenia, unspecified; I07.1 Rheumatic tricuspid insufficiency; K74.60 Unspecified cirrhosis of liver; J44.9 Chronic obstructive pulmonary disease, unspecified; I25.10 Atherosclerotic heart disease of native coronary artery without angina pectoris; K76.0 Fatty (change of) liver, not elsewhere classified; G47.33 Obstructive sleep apnea (adult) (pediatric); I25.5 Ischemic cardiomyopathy; G89.29 Other chronic pain; F41.9 Anxiety disorder, unspecified; F32.9 Major depressive disorder, single episode, unspecified; F17.210 Nicotine dependence, cigarettes, uncomplicated; K74.69 Other cirrhosis of liver; J32.0 Chronic maxillary sinusitis; E78.5 Hyperlipidemia, unspecified; D73.1 Hypersplenism; M47.9 Spondylosis, unspecified; I25.2 Old myocardial infarction; W06.XXXA Fall from bed, initial encounter; Y92.230 Patient room in hospital as the place of occurrence of the external cause; N26.1 Atrophy of kidney (terminal); N40.0 Benign prostatic hyperplasia without lower urinary tract symptoms; E03.9 Hypothyroidism, unspecified; Z95.5 Presence of coronary angioplasty implant and graft; Z95.0 Presence of cardiac pacemaker; Z86.14 Personal history of Methicillin resistant Staphylococcus aureus infection; Z83.3 Family history of diabetes mellitus; Z79.891 Long term (current) use of opiate analgesic
CPT/HCPCS: 36600; 70450; 71010; 71020; 76775; 80048; 80053; 80069; 80305; 80307; 82140; 82550; 82553; 82728; 82805; 83540; 83550; 83735; 83880; 84100; 84443; 84484; 85025; 85610; 85730; 87804; 93005; 93288; 94640; 99285; A9270-GY; G0463